=== PATIENT | female | born 1960 | race Caucasian/White ===

== ENCOUNTER 2021-10-16 14:20 | Outpatient (RCR) | payer OTHER, SELFPAY | END 2021-10-20 08:53 | disposition home or self-care (01) | LOC: HO.PT 14:20 | PROVIDERS: PCP Nurse Practitioner; Visit Provider Nurse Practitioner Adult Health | DX: M54.12 Radiculopathy, cervical region (principal); M47.892 Other spondylosis, cervical region; M50.320 Other cervical disc degeneration, mid-cervical region, unspecified level | CPT/HCPCS: 97110; 97162; 97535 ==